=== PATIENT | female | born 1950 | race Caucasian/White ===

== ENCOUNTER → 2016-03-11 | Outpatient (CLI) | payer MEDICARE, MEDICAID ==
[~2016-03-11] MED LIST: LIDOCAINE 1% MDV 20ML VIAL As Ordered ONE
--- NOTE | 2016-03-12 16:37 | REP ---
ULTRASOUND GUIDED LEFT AXILLARY LYMPH NODE BIOPSY: The procedure was performed under the direct supervision of Dr. Johnson. The patient has a history of multiple lymph nodes in the left axilla seen on a previous CAT scan dated 02/22/2016. The risks and benefits of the procedure were explained to the patient and informed consent was obtained. The largest left axillary lymph node was localized using ultrasound guidance. The skin was prepped and draped in a sterile fashion. 1% lidocaine was used as a local anesthetic. Using ultrasound guidance a 19/20 gauge co-axial needle biopsy system was inserted and advanced into the lymph node. Six core biopsy samples were obtained and sent to the lab. The patient tolerated the procedure well and there were no immediate complications. After the appropriate amount of monitored convalescence the patient was discharged from the department. Reviewed by MISHA Diaz 03/12/2016 04:48 PEdited and Signed by Jaime Johnson MD 03/12/2016 04:49 P
== END | disposition home or self-care (01) ==
LOC: M RADPRO 12:04
PROVIDERS: ATTEND Nurse Practitioner Family
DX: C50.912 Malignant neoplasm of unspecified site of left female breast (principal); Z88.8 Allergy status to other drugs, medicaments and biological substances; Z88.5 Allergy status to narcotic agent; Z79.899 Other long term (current) drug therapy

== ENCOUNTER → 2016-03-19 | Outpatient (CLI) | payer MEDICARE, MEDICAID ==
[~2016-03-19] MED LIST changes: +ALBU17IN INH; +ALLO10TA PO; +AMIT50TA PO; +ASPI1TAB PO; +ASPI81TA13 PO; +ATEN50TA2 PO; +CALC1TAB30 PO; +CLEM2.68 PO; +KETO10TAB PO; -LIDOCAINE 1% MDV 20ML VIAL As Ordered ONE; +NATU400T PO; +PERCOCET PO; +PRAV40TA2 PO; +SYMB16INH INH
--- NOTE | 2016-03-19 16:30 | REP ---
PET/CT: History: Restaging breast carcinoma. Comparisons: Comparison CT study of the chest is from 02/22/2016. Comparison bone scan 02/22/2016. The patient underwent ultrasound-guided needle biopsy of the axillary lymph node on 03/11/2016. This was positive for metastatic ductal carcinoma breast origin. TECHNIQUE: 78 minutes following the intravenous injection of a 8.4 mCi dose of F-18 FDG, three-dimensional PET scintigraphy is acquired from the skull base to the proximal thighs. Triplanar noncontrast CT scanning is acquired through the same anatomic range for attenuation correction, and image registration with scan parameters optimized to minimize radiation exposure to the patient. PET scintigraphy and CT datasets were fused and displayed on a workstation with multiplanar and projection display capability. PET/CT Findings: There are multiple minimally hypermetabolic lymph nodes in the left axilla. Maximum SUV value in these lymph nodes range up to 2.2. No other abnormal hypermetabolic uptake is seen within the left breast. No abnormal chest wall uptake is seen. The right breast is surgically absent. There is some right pectoralis muscle uptake which is most likely normal variant. No abnormal hypermetabolic uptake is seen in the head and neck soft-tissues. No intrathoracic hypermetabolic uptake is seen. No abnormal abdominal or pelvic FDG accumulation is seen. Impression: Mildly hypermetabolic left axillary lymphadenopathy. No other hypermetabolic FDG accumulation is seen. Signed by Jaime Johnson MD 03/19/2016 08:16 P
== END ==
LOC: M RAD 11:00
PROVIDERS: ATTEND Internal Medicine Medical Oncology
DX: C50.912 Malignant neoplasm of unspecified site of left female breast (principal); R59.1 Generalized enlarged lymph nodes
CPT/HCPCS: 78815; A9552

== ENCOUNTER 2016-04-22 05:49 | Inpatient (IN) | payer MEDICARE ==
[2016-04-22] VITALS (7 sets, daily range): BP systolic 117–137; BP diastolic 57–77
[~2016-04-22] VITALS: Ht 149.9 cm; Wt 72.6 kg
[~2016-04-22 05:49] MED LIST changes: -PERCOCET PO
[2016-04-22] MEDS ORDERED: LR 1,000 ML IV SCH ×3 (06:00→12:45)
[2016-04-22] MEDS ORDERED: dexameTHASONE 4 MG/ML 1ML VIAL (J1100) As Ordered ONE (06:09)
[2016-04-22] MEDS ORDERED: ONDANSETRON 4MG/2ML VIAL (J2405) As Ordered ONE (06:09)
[2016-04-22] MEDS ORDERED: LIDOCAINE 2% INJ 100 MG/5 ML SDV (FOR ANES.) As Ordered ONE (06:09)
[2016-04-22] MEDS ORDERED: PROPOFOL 200 MG/20 ML VIAL As Ordered ONE (06:09)
[2016-04-22] MEDS ORDERED: MIDAZOLAM INJ 2 MG/2 ML VIAL (J2250) As Ordered ONE (06:16)
[2016-04-22] MEDS ORDERED: fentaNYL 250 MCG/5 ML INJECTION (J3010) As Ordered ONE (06:16)
[2016-04-22] MEDS ORDERED: SCOPOLAMINE 1.5 MG TRANSDERMAL As Ordered ONE (07:17)
[2016-04-22] MEDS ORDERED: LIDOCAINE 1% SDV INJ 30 ML VIAL As Ordered ONE (07:21)
[2016-04-22] MEDS ORDERED: HEPARIN SOD (PORCINE) 5000 UNITS/ML VIAL As Ordered ONE (07:21)
[2016-04-22] MEDS ORDERED: SCOPOLAMINE 1.5 MG TRANSDERMAL TOP ONE (07:30)
[2016-04-22] MEDS ORDERED: ceFAZolin 2 GM/D5W 50 ML IV BAG (J0690) As Ordered ONE (07:32)
[2016-04-22] MEDS ORDERED: ePHEDrine SULFATE 25 MG/5 ML(5MG/ML) SYRINGE As Ordered ONE (07:53)
[2016-04-22] MEDS ORDERED: LIDOCAINE 1% SDV INJ 30 ML VIAL XX ONE (08:34)
[2016-04-22] MEDS ORDERED: HEPARIN SOD (PORCINE) 5000 UNITS/ML VIAL XX ONE (08:34)
[2016-04-22] MEDS: ATENOLOL 50 MG TAB PO SCH (09:00)
--- NOTE | 2016-04-22 09:25 | REP ---
FLUOROSCOPIC GUIDANCE FOR CATHETER PLACEMENT: 04/22/2016. Clinical history: Mastectomy. Central line placement. Findings: Single image from C-arm fluoroscopy provided to Dr. Escobar of the surgery department. The right jugular catheter into the SVC in paraspinal region, tip at about the T6 rib level. There is an endotracheal tube also seen, a few centimeters above the lucia. Fluoroscopy time: 1 second. Signed by Sung Gil MD 04/22/2016 05:39 P
[2016-04-22] MEDS ORDERED: HYDROmorphone HCL 2 MG/ML 1ML VIAL (J1170) As Ordered ONE (09:59)
[2016-04-22] MEDS ORDERED: DESFLURANE 240 ML INHALANT As Ordered ONE ×3 (09:59→10:02)
[2016-04-22] MEDS ORDERED: fentaNYL 100 MCG/2 ML INJECTION (J3010) IV PRN (12:45)
[2016-04-22] MEDS ORDERED: HYDROmorphone HCL 1 MG/ML SYRINGE (J1170) IV PRN (12:45)
[2016-04-22] MEDS ORDERED: ONDANSETRON 4MG/2ML VIAL (J2405) IV PRN ×2 (12:45→13:00)
[2016-04-22] MEDS ORDERED: NORCO, ANEXSIA 5/325MG TABLET (HYDROcodone/ACETAMINOPHEN) PO PRN (13:00)
[2016-04-22] MEDS ORDERED: ACETAMINOPHEN TAB 650MG DOSE (2X325MG) PO PRN (13:00)
[2016-04-22] MEDS: LR 1,000 ML IV SCH (16:27)
[2016-04-22] MEDS ORDERED: PROMETHAZINE INJ 25 MG/ML VIAL (J2550) IV PRN (18:00)
[2016-04-22] MEDS ORDERED: KETOROLAC 30 MG/ML VIAL (J1885) IV PRN (18:00)
[2016-04-22] MEDS: SYMBICORT 160/4.5MCG INHALER 6GM INH SCH (20:55)
[2016-04-22] MEDS: AMITRIPTYLINE 50 MG TAB PO SCH (21:00)
[2016-04-22] MEDS: ALLOPURINOL 100 MG TAB PO SCH (21:00)
[2016-04-22] MEDS: PERCOCET 5MG/325MG TAB PO PRN (23:45)
[2016-04-23] VITALS: BP 132/65
[2016-04-23] MEDS: LR 1,000 ML IV SCH (00:48)
[2016-04-23 04:00] VITALS: BP 138/65
[2016-04-23 08:00] VITALS: BP 128/60
[2016-04-23] MEDS: SYMBICORT 160/4.5MCG INHALER 6GM INH SCH ×2 (08:11→21:54)
[2016-04-23] MEDS: ALLOPURINOL 100 MG TAB PO SCH ×2 (09:00→20:33)
[2016-04-23] MEDS: ATENOLOL 50 MG TAB PO SCH (09:00)
[2016-04-23 12:00] VITALS: BP 124/66
[2016-04-23] MEDS: PERCOCET 5MG/325MG TAB PO PRN (14:39)
[2016-04-23 16:00] VITALS: BP 109/50
[2016-04-23 20:00] VITALS: BP 110/55
[2016-04-23] MEDS: AMITRIPTYLINE 50 MG TAB PO SCH (20:33)
[2016-04-24] VITALS (7 sets, daily range): BP systolic 115–169; BP diastolic 57–86
[2016-04-24] MEDS: PERCOCET 5MG/325MG TAB PO PRN ×2 (04:09→10:08)
--- NOTE | 2016-04-24 06:02 | RO ---
DATE OF PROCEDURE: 04/23/2016 PREOPERATIVE DIAGNOSIS: Infiltrating ductal of left breast with axillary node metastases. POSTOPERATIVE DIAGNOSIS: Infiltrating ductal of left breast with axillary node metastases. PROCEDURES PERFORMED: 1. Implantation of the right internal jugular vein Txngmm-J-Llng with ultrasound and fluoroscopic guidance. 2. Left modified radical mastectomy. SURGEON: Simón Escobar MD SPRAYER LEATHER: Leelee Retana NP ANESTHESIA: General. INDICATIONS FOR THE PROCEDURE: The patient is a 65-year-old woman who had undergone treatment for a right breast carcinoma with multiple positive axillary nodes 20 years ago. On recent followup, she was found to have some enlarged nodes in the left axilla and an ultrasound-guided needle biopsy showed metastatic ductal carcinoma of breast origin. She underwent further evaluation including mammogram and ultrasound that showed no definite breast lesion. A CT scan of the chest showed nodes in the left axilla but no other abnormalities to suggest metastatic disease. A bone scan showed no evidence of metastatic disease. A PET CT showed some mildly hypermetabolic left axillary nodes. An MRI of the left breast showed three small suspicious foci deep in the left breast at about the 6 o'clock position. The patient is now for a right internal jugular (IJ) Jqqmrt-Y-Ixfr placement and a left modified radical mastectomy. OPERATIVE PROCEDURE: The patient was placed under general endotracheal anesthesia. The patient was initially prepared for the Rssfbv-E-Bdtf placement. The patient's head was turned to the left. The patient's neck and upper chest were prepped and draped in a sterile fashion. The ultrasound probe was draped in used to inspect the right neck. The patient was moved into a Trendelenburg position. She had an excellent internal jugular vein identified and the carotid artery was well seen. The site of the vein was marked on the skin with a marker. An #18 gauge needle was inserted and with continuous ultrasound guidance the needle was advanced directly into the vein without difficulty. The guidewire was passed. The skin was nicked. The peel-away sheath introducer was passed and the Wtnaay-I-Eyrd catheter was then inserted to approximately 20 cm. There was excellent return of blood and the catheter was flushed with heparinized saline. The catheter was withdrawn to approximately 15 cm at the skin. The patient was returned to a flat position. Fluoroscopy was used to inspect the position of the catheter and the catheter was returned to approximately 12 cm of the skin surface. This showed good positioning of the tip of the catheter just about at the juncture of the superior vena cava and the right atrium. A short infraclavicular incision was made and a subcutaneous port was created for placement of the port. The catheter was tunneled subcutaneously down to the port sites. The port was flushed with heparinized saline and the catheter was then cut to length and attached to the port with a locking ring. The port was placed in the subcutaneous pocket and two #3-0 Vicryl sutures were placed to hold this in place. The subcutaneous tissues were closed with some interrupted buried sutures of #3-0 Vicryl. Both incisions were then closed with buried #5-0 Vicryl. The port was accessed through the skin and flushed with 100 units/mL heparin solution. Steri-Strips were applied to the port site incision. Small OpSite were applied to both incisions. The patient was then repositioned. She had a folded towel placed beneath the left shoulder. The left arm was extended on an arm board. The patient's left breast, chest wall, axilla and left upper extremity were then prepped and draped in sterile fashion. An elliptical transverse incision was outlined across the breast. This was approximately 5-6 cm in width x 25 cm in length. The skin was incised and the incision was then deepened into the subcutaneous tissues using the cautery. The superior skin flap was elevated using the cautery. The inferior skin flap was then developed similarly. The elevation of the breast was begun medially by incising the pectoral fascia and then elevating the breast with the underlying pectoral fascia from medial to lateral. Dissection was carried to the lateral border of the pectoral muscle. The dissection was then carried up along the border of the pectoral muscle freeing the edge of the muscle. The pectoralis minor muscle was also identified. There were no nodes identified between the pectoral muscles. The location of the axillary vein and the artery was identified by palpation. The soft tissues were incised inferior to the vein and swept inferiorly. There were several nodes palpable in the upper aspect of the axilla. The largest of these was about a centimeter and did appear to be somewhat adherent to the surrounding fibrofatty tissue. This was just inferior to the vein along the chest wall. This was swept inferiorly. There were several small, firm nodes also in this area. Dissection was carried across the inferior aspect of the vein. The thoracodorsal neurovascular bundle was identified and preserved. The long thoracic nerve was also identified and preserved. The tissues were swept inferiorly from the interneural area. As the tissues were swept inferiorly, the lateral chest wall attachments of the breast were freed with the cautery and the final attachments underneath the skin flaps laterally were freed and the specimen was removed. Palpation within the axilla revealed a small portion of fibrofatty tissue at the lateral aspect of the axilla and this appeared to contain at least one node in the superior portion and so this portion of fibrofatty tissue was dissected free also. The specimen was labeled a modified radical mastectomy with additional axillary tissue and all of this tissue was sent for permanent pathology. The wound was inspected and there were no definite residual nodes identified within the axilla. The two nerves were identified and were intact. The wound was irrigated with warm saline and inspected for hemostasis. Small bleeding points were controlled with the cautery. Two 19-Eritrean Vipin drains were placed. One of these was placed more medial and curled up beneath the medial portions of the wound to lie beneath the superior skin flap. The second took a more lateral approach and extended directly up into the axilla. The skin flaps were approximated with multiple buried simple sutures of #3-0 Vicryl. The skin edges were approximated with a running subcuticular suture of #4-0 Vicryl. Steri-Strips were applied to the incision. The drains were sutured to the skin with #2-0 silk sutures. Chlorhexidine gluconate OpSites were applied to the drain sites. A bulky bandage was applied within the axilla and along the incision. I would note that the Fptinz-J-Jpxz placed was a Bard port, reference code number [id number] and lot number [id number]. The patient was awakened in the operating room and extubated and moved to the recovery room in stable condition.
[2016-04-24] MEDS: SYMBICORT 160/4.5MCG INHALER 6GM INH SCH ×2 (08:04→20:22)
[2016-04-24] MEDS: ALLOPURINOL 100 MG TAB PO SCH ×2 (08:19→21:37)
[2016-04-24] MEDS: ATENOLOL 50 MG TAB PO SCH (08:20)
[2016-04-24] MEDS ORDERED: MOM 30ML SUSPENSION UDC PO ONE (21:00)
[2016-04-24] MEDS ORDERED: SODIUM CHLORIDE NASAL 0.65% SPRAY BTL (OCEAN) PRN (21:00)
[2016-04-24] MEDS: AMITRIPTYLINE 50 MG TAB PO SCH (21:37)
[2016-04-25] VITALS: BP 103/67
[2016-04-25 04:28] VITALS: BP 125/61
[2016-04-25] MEDS: SYMBICORT 160/4.5MCG INHALER 6GM INH SCH (07:29)
[2016-04-25 08:00] VITALS: BP 119/58
[2016-04-25 08:58] VITALS: BP 119/58
[2016-04-25] MEDS: ATENOLOL 50 MG TAB PO SCH (08:58)
[2016-04-25] MEDS: ALLOPURINOL 100 MG TAB PO SCH (08:58)
[2016-04-25 12:00] VITALS: BP 124/74
[2016-04-25] MEDS ORDERED: PERCOCET PO (12:28)
[2016-04-25] MEDS: PERCOCET 5MG/325MG TAB PO PRN (13:26)
== END 2016-04-25 14:00 | disposition home or self-care (01) | DRG 582 ==
LOC: M OR 05:49 → M PED 13:53
PROVIDERS: ADMIT Surgery; ATTEND Surgery
PROC: 0HTU0ZZ Resection of Left Breast, Open Approach (ICD-10-PCS; principal; 2016-04-23)
PROC: 02HV33Z Insertion of Infusion Device into Superior Vena Cava, Percutaneous Approach (ICD-10-PCS; 2016-04-23)
DX: C50.912 Malignant neoplasm of unspecified site of left female breast (principal); C77.3 Secondary and unspecified malignant neoplasm of axilla and upper limb lymph nodes; Z79.899 Other long term (current) drug therapy; I10 Essential (primary) hypertension; E78.00 Pure hypercholesterolemia, unspecified; G47.30 Sleep apnea, unspecified; J44.9 Chronic obstructive pulmonary disease, unspecified; K21.9 Gastro-esophageal reflux disease without esophagitis; Z85.3 Personal history of malignant neoplasm of breast; I97.2 Postmastectomy lymphedema syndrome

== ENCOUNTER → 2016-05-15 | Outpatient (CLI) | payer MEDICARE ==
[~2016-05-15] MED LIST changes: +PERCOCET PO
--- NOTE | 2016-05-15 13:48 | REP ---
MRI BRAIN WITHOUT AND WITH CONTRAST: 05/15/2016 CLINICAL HISTORY: Dizziness. Metastatic breast carcinoma. Evaluate for possible intracranial metastatic disease. COMPARISON: 01/20/2014. TECHNIQUE: Axial T1, T2 FLAIR, diffusion weighted images and ADC mapping sequences. Following infusion of 14.4 mL of ProHance, axial, sagittal and coronal T1 sequences were performed. FINDINGS: Lateral ventricles are midline symmetric and without dilatation or displacement. Basal ganglia show some dilated perivascular spaces of Virchow, as before. There is some periventricular, subcortical and a few scant deep centrum semiovale white matter hyperintense T2 and FLAIR foci in both hemispheres. There are a couple of new foci periventricular region on the left posterior frontal region but no other change. There is no evidence of enhancement any of these foci on the contrast images. The evans-white junction differentiation is well maintained. The cortical stripe is preserved. No significant atrophy, vascular territory infarct, mass or mass effect. I see no evidence of gyriform enhancement, enhancing mass, abnormal meningeal enhancement or vascular malformation. There is no cord signal abnormality or abnormal enhancement on the upper cervical cord included in these images. Posterior fossa including the brainstem and cerebellum likewise shows no abnormal enhancement. Globes and intraorbital contents symmetric and normal. The visualized mastoids, seventh/eighth cranial nerve complexes and skull base are grossly unremarkable. The corpus callosum, optic chiasm and pituitary are intact. No cerebellar tonsillar ectopia. IMPRESSION: 1. Basal ganglia, periventricular and subcortical white matter hyperintense foci on T2 and FLAIR images, similar in pattern to previous study with only a couple of new foci in the left periventricular region of the posterior frontal lobe. None of these show abnormal enhancement nor is there any enhancing mass, abnormal meningeal enhancement, gyriform enhancement or other finding on the gadolinium images. 2. Posterior fossa intact. No intracranial hemorrhage. 3. The diffusion-weighted images and ADC mapping sequences show no evidence of acute ischemia. Stable examination. Signed by Sung Gil MD 05/15/2016 04:17 P
== END ==
LOC: M RAD 09:18
PROVIDERS: ATTEND Internal Medicine Medical Oncology
DX: C50.919 Malignant neoplasm of unspecified site of unspecified female breast (principal); R42 Dizziness and giddiness
CPT/HCPCS: 70553; A9576

== ENCOUNTER 2016-06-01 07:00 | Emergency (ER) | payer MEDICARE ==
[~2016-06-01] VITALS: Ht 152.4 cm; Wt 72.6 kg
[2016-06-01] MEDS ORDERED: KETOROLAC 30 MG/ML VIAL (J1885) IV ONE (08:00)
[2016-06-01] MEDS ORDERED: NS 1,000 ML IV ONE (08:00)
[2016-06-01 08:57] LABS: ALBUMIN 2.5 GM/DL (3.2-5.2); ALBUMIN/GLOBULIN RATIO 0.69 (1.00-1.93); ALKALINE PHOSPHATASE 101 U/L (45-117); ALT/SGPT 20 U/L (12-78); ANION GAP 6 MEQ/L (8-16); AST/SGOT 19 U/L (15-37); BILIRUBIN,DIRECT 0.1 MG/DL (0.0-0.2); BILIRUBIN,TOTAL 0.6 MG/DL (0.2-1.0); BLOOD UREA NITROGEN 14 MG/DL (7-18); CALCIUM LEVEL 7.6 MG/DL (8.8-10.2); CARBON DIOXIDE LEVEL 29 MEQ/L (21-32); CHLORIDE LEVEL 103 MEQ/L (98-107); CREATININE FOR GFR 0.74 MG/DL (0.55-1.02); GLOMERULAR FILTRATION RATE > 60.0 (>45); GLUCOSE, FASTING 87 MG/DL (80-110); POTASSIUM SERUM 3.8 MEQ/L (3.5-5.1); SODIUM LEVEL 138 MEQ/L (136-145); TOTAL PROTEIN 6.1 GM/DL (6.4-8.2)
[2016-06-01 08:58] LABS: MEAN CORPUSCULAR HEMOGLOBIN 27.1 pg (27.0-33.0); MEAN CORPUSCULAR HGB CONC 31.1 g/dl (32.0-36.5); MEAN CORPUSCULAR VOLUME 87.2 fl (80.0-96.0); PLATELET COUNT, AUTOMATED 153 k/mm3 (150-450); RED CELL DISTRIBUTION WIDTH 13.9 % (11.5-14.5)
--- NOTE | 2016-06-01 09:09 | REP ---
Clinical: Fever. Technique: PA and lateral. Comparison: 12/12/2010. Findings: Mediastinum and cardiac silhouette are within normal limits and stable. Uxisjq-P-Jmxd with tip in the SVC. Evidence for prior bilateral axillary node dissection. Moderate hiatal hernia noted. No acute consolidation, effusion, or pneumothorax. Skeletal structures stable. Impression: No acute cardiopulmonary process identified. Signed by Gio Dillard MD 06/01/2016 09:01 A
[2016-06-01] MEDS ORDERED: fentaNYL 100 MCG/2 ML INJECTION (J3010) IV ONE (09:30)
[2016-06-01 09:34] LABS: BANDS 2 % (< 11); EOSINOPHILS 5 % (0-5)
[2016-06-01 10:17] VITALS: BP 129/60
== END 2016-06-01 10:43 | disposition home or self-care (01) ==
LOC: M ED 07:42
DX: R53.81 Other malaise (principal); R53.83 Other fatigue; M10.9 Gout, unspecified; G47.33 Obstructive sleep apnea (adult) (pediatric); I10 Essential (primary) hypertension; C50.919 Malignant neoplasm of unspecified site of unspecified female breast; G43.909 Migraine, unspecified, not intractable, without status migrainosus; J45.909 Unspecified asthma, uncomplicated; Z88.6 Allergy status to analgesic agent; Z88.8 Allergy status to other drugs, medicaments and biological substances; Z91.018 Allergy to other foods; Z88.5 Allergy status to narcotic agent; Z79.82 Long term (current) use of aspirin; Z79.899 Other long term (current) drug therapy
CPT/HCPCS: 36415; 71020; 80048; 80076; 81001; 83605; 85025; 86140; 87040; 87086; 87804; 96361; 96374; 96375; 99283; J1885; J3010

== ENCOUNTER 2016-06-18 13:30 | Emergency (ER) | payer MEDICARE ==
[~2016-06-18] VITALS: Ht 149.9 cm; Wt 74.8 kg
[2016-06-18] MEDS ORDERED: DEXA4TA (13:52)
[2016-06-18] MEDS ORDERED: Compazine (13:52)
[2016-06-18] MEDS ORDERED: AUGM500T34 (13:52)
[2016-06-18] MEDS ORDERED: ZOFR8TAB (13:52)
[2016-06-18] MEDS ORDERED: FAMOTIDINE IV BAG 20 MG in APPROPRIATE DILUENT 1 EA IV ONE (14:30)
[2016-06-18] MEDS ORDERED: methylPREDNISolone INJ 125 MG/2 ML VIAL (J2930) IV ONE (14:30)
--- NOTE | 2016-06-18 15:39 | REP ---
Soft-tissue neck x-ray: Three views. History: Difficulty swallowing. Findings: A right-sided Bawpka-Y-Bdxf catheter is seen with its tip in the expected location of the superior vena cava via the internal jugular vein. The soft tissue neck radiographs show normal epiglottis. The retropharyngeal soft tissues are unremarkable. Glottic and subglottic airway is unremarkable. Hypopharyngeal airway is unremarkable. There are degenerative disc changes in the mid cervical spine. Impression: Right internal jugular vein Dbbonx-S-Wvxa catheter. No evidence of mass or abnormal swelling. Otherwise negative. Signed by Jaime Johnson MD 06/18/2016 05:05 P
[2016-06-18] MEDS ORDERED: PRED20TA PO (17:51)
[2016-06-18] MEDS ORDERED: BENA25TA9 PO (17:52)
[2016-06-18 18:13] VITALS: BP 174/85
[2016-06-18] MEDS ORDERED: SODIUM CHLORIDE 0.9% INJ 10 ML SYR IV PRN (18:30)
== END 2016-06-18 18:43 | disposition home or self-care (01) ==
LOC: EDBD 13:30 → M ED 16:04
DX: T88.7XXA Unspecified adverse effect of drug or medicament, initial encounter (principal); X58.XXXA Exposure to other specified factors, initial encounter; Y92.9 Unspecified place or not applicable; Y93.9 Activity, unspecified; Y99.9 Unspecified external cause status; C50.919 Malignant neoplasm of unspecified site of unspecified female breast; G47.30 Sleep apnea, unspecified; K22.70 Barrett's esophagus without dysplasia; K44.9 Diaphragmatic hernia without obstruction or gangrene
CPT/HCPCS: 70360; 93041; 94760; 96374; 96375; 99284; J2930

== ENCOUNTER → 2016-07-31 | Outpatient (CLI) | payer MEDICARE ==
[~2016-07-31] MED LIST changes: +AUGM500T34; +BENA25TA9 PO; +Compazine; +DEXA4TA; +PRED20TA PO; +ZOFR8TAB
--- NOTE | 2016-07-31 14:40 | RADONC ---
RADIATION ONCOLOGY CONSULTATION NOTE DATE: 07/31/2016 CHART NUMBER: [id number] DIAGNOSIS: Left breast cancer. STAGE: IIIC, [id number] ECOG PERFORMANCE STATUS: 2 CONSULTATION NOTE: Ms. Johnson is a very pleasant 65-year-old white female with the diagnosis of what appears to be a stage IIIC, [id number], poorly differentiated invasive ductal carcinoma of the left breast who is presenting to us today status post left mastectomy and axillary lymph node dissection as well as chemotherapy consisting thus far of four cycles of Adriamycin and Cytoxan, for discussion of definitive external beam radiation therapy with IMRT/IGRT. HISTORY OF PRESENT ILLNESS: The patient is actually well-known to us and was initially seen by me on 05/13/2002 for what was then thought to be at least a stage IIIA or possibly stage IV, T2N2MX, poorly differentiated infiltrating ductal carcinoma of the right breast. At that point, she had already undergone right modified radical mastectomy and four cycles of chemotherapy consisting of Cytoxan and Adriamycin as well as weekly Taxol. We treated the patient back then to her left chest wall and lymph node drainage sites. She has done well for the last 14 years with regards to her very advanced cancer of the right side. At that time, she had been found to have 24 out of 24 dissected lymph nodes positive with metastatic disease and at least two of the lymph nodes had extracapsular extension. Unfortunately, the patient has a significant amount of lymphedema over her right side. More recently, the patient was found to have a lesion in the lower quadrant of her left breast. On 04/22/2016, she underwent a left modified radical mastectomy and axillary lymph node dissection. Pathology revealed a 2 cm poorly differentiated invasive ductal carcinoma of the left breast. A total of 22 axillary lymph nodes were sampled, and all were found to have metastatic adenocarcinoma. Extranodal extension and tumor plugs in lymphatic channels were seen throughout the axilla. The largest lymph node measured 3.5 cm. The tumor was found to be estrogen receptor and progesterone receptor positive and HER2 negative. Lymph vascular invasion was identified and was extensive. The patient was seen by our medical oncologist, Dr. Anderson, who has given the patient systemic therapy. She has thus far, as of Thursday this week, completed her fourth cycle of chemotherapy consisting of docetaxel and cyclophosphamide. The patient is now presenting for discussion of external beam radiation therapy to her chest wall and lymph node drainage areas. PAST MEDICAL HISTORY: The patient's past medical history, other than for contralateral breast cancer, is positive for hypertension and asthma. ALLERGIES: The patient is allergic to DEMEROL and MORPHINE. SOCIAL HISTORY: The patient does not smoke cigarettes nor abuse alcohol. FAMILY HISTORY: The patient's family history is positive for a brother with melanoma and a sister with Hodgkin disease. REVIEW OF SYSTEMS: The patient's review of systems is positive for bilateral upper extremity lymphedema. 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 Her left arm and hand are now swelling since her extensive axillary dissection as well. She also reports some occasional dizziness as well as weight gain. She has generalized weakness as well as decreased energy. She also reports some shortness of breath. She denies nausea, vomiting, fevers, chills, night sweats, diplopia, anxiety or depression, anorexia, urinary or bowel difficulties, or neurological problems. PHYSICAL EXAMINATION: The patient is a well-developed, well-nourished, 65-year-old white female in no acute distress. Her face appears somewhat puffy. HEENT: Exam is normocephalic, atraumatic. Extraocular movements are intact. There is no palpable cervical, supraclavicular, infraclavicular, axillary, or inguinal lymphadenopathy present. Her lungs are clear to auscultation and percussion. Her heart has a regular rate and rhythm. Her abdomen is benign with no hepatosplenomegaly, masses, or tenderness. Her bilateral chest miller show well-healed mastectomy scars with no evidence of nodularity, ulceration, residual or recurrent disease. Skeletal examination reveals no tenderness to pressure or percussion of the bony skeleton. Extremities reveal bilateral upper extremity edema. She is wearing lymphedema sleeves on both arms. The edema in the right arm appears to be somewhat worse than the left, but the difference appears minimal between the two at this point. MEDICAL NECESSITY: IMRT/IGRT is clinically indicated for the highly conformal dose planning required. The target volume is in close proximity to critical structures, such as the heart, lungs, spinal cord, stomach, and esophagus. The volume of interest must be covered with narrow margins to adequately protect immediately adjacent structures. The plan requires interpretation of complex testing such as CT localization. As noted above, special planning (IMRT) and localizing (IGRT) is required and essential to maximally protect sensitive normal tissue structures which cannot be accomplished using conventional 3-dimensional planning. ASSESSMENT: Clearly, Ms. Johnson is a candidate for external beam radiation therapy, and I have so informed her. I have discussed with the patient in detail the potential benefits as well as possible acute and chronic sequelae of external beam radiation therapy. We discussed logistics of treatment planning, simulation, and subsequent fractionated daily radiation treatments. In light of the fact that she has extensive lymph involvement and lymph vascular invasion and the fact that this was a lower quadrant lesion somewhat medially in location, clearly we will need to treat the internal mammary nodes if at that all possible. Because of the proximity of the heart and other critical structures and the previously irradiated chest wall on the contralateral side, great care will need to be taken in order to avoid damaging any of these structures. Therefore, IMRT will provide us the best chance of achieving that. Once again, we will require IMRT/IGRT in order to minimize any dose to the contralateral chest wall as well as to the heart and other critical organs. The patient is scheduled to see Dr. Anderson, her medical oncologist, next week to discuss further chemotherapy. She reports that she was originally designed to receive six cycles of chemo not four. She wishes to undergo those cycles considering the aggressive nature of her disease. I explained to the patient that radiation would be delivered after she completes chemotherapy. Since two further cycles are planned at this point, I have tentatively set her up to be seen by me again in 7 weeks for further followup and initiation of treatment planning. If, for some reason, the patient completes chemotherapy early, her medical oncologist can refer back to us at any time and we can initiate radiation sooner. Thank you for allowing us to participate in the care of this very pleasant woman. If I could be of any further assistance or provide you with any information, please fell free to contact me anytime. cc: MD Simón Ghosh MD Fredrick Tontarski, PA
--- NOTE | 2016-08-08 09:18 | RADONC ---
ADDENDUM TO CONSULTATION NOTE DATE: 07/31/2016 CHART NUMBER: [id number] On the second page the paragraph that says the patient was seen by her medical oncologist Dr. Anderson who has given her systemic therapy. The drug names are wrong. So the last sentence of that should read she is thus far as of Thursday this week completed her fourth cycle of chemotherapy consisting of Adriamycin and Cytoxan. So it is Adriamycin and Cytoxan not docetaxel and cyclophosphamide.
== END ==
LOC: M ONCR 08:46
PROVIDERS: ATTEND Radiology Radiation Oncology
DX: C50.919 Malignant neoplasm of unspecified site of unspecified female breast (principal)

== ENCOUNTER → 2016-08-27 | Outpatient (CLI) | payer MEDICARE ==
--- NOTE | 2016-08-27 15:30 | REP ---
Clinical: Increasing shortness of breath with history of breast cancer. Comparison: 02/22/2016. Findings: The bilateral lung bean are relatively well aerated and symmetric. Minimal chronic interstitial changes and scarring noted. Superimposed subtle acute lingular air space disease should be correlated clinically and may reflect atelectasis/early pneumonia. No significant consolidation, nodule or mass lesion otherwise appreciated. No pleural effusion. No pneumothorax. Tracheobronchial tree is patent. Postsurgical changes related to hiatal hernia remains stable at the gastroesophageal junction. Heart and pericardium are normal. Atherosclerotic changes to the thoracic aorta noted without aneurysm. The patient is status post bilateral mastectomy and axillary node dissection. Limited upper abdomen demonstrates normal bilateral adrenal glands. Surrounding musculoskeletal structures are intact without focal osseous abnormality. Impression: 1. Very subtle air space disease to the lingula may reflect acute atelectasis/early pneumonia and correlation is recommended. 2. Chronic and postsurgical changes. No further acute mediastinal or pleuroparenchymal process appreciated. Signed by Gio Dillard MD 08/27/2016 03:22 P
== END ==
LOC: M RAD 14:13
PROVIDERS: ATTEND Internal Medicine Medical Oncology
DX: C50.919 Malignant neoplasm of unspecified site of unspecified female breast (principal); R06.02 Shortness of breath

== ENCOUNTER → 2016-09-18 | Outpatient (CLI) | payer MEDICARE ==
[~2016-09-18] MED LIST changes: -ASPI81TA13 PO; +ASPI81TA24 PO; +BENA25TA10 PO; -BENA25TA9 PO; +PERC5TAB12 PO
--- NOTE | 2016-09-18 10:06 | RADONC ---
RADIATION ONCOLOGY RECONSULTATION NOTE DATE: 09/18/2016 CHART NUMBER: [id number] DIAGNOSIS: Left breast cancer STAGE: III C, [id number]. ECOG PERFORMANCE STATUS: 1. RECONSULTATION NOTE: Ms. Johnson is a very pleasant 65-year-old white female with the diagnosis of what appears to be a stage III C, [id number], poorly differentiated invasive ductal carcinoma of the left breast who initially presented to us on 07/31/2016 for consideration of postoperative radiation therapy utilizing IMRT/IGRT. The patient returns today now having completed chemotherapy on 09/11/2016, of last week. She is now here for discussion once again of external beam radiation therapy. REVIEW OF SYSTEMS: The patient's review of systems is positive for bilateral lymphedema. Her right arm is largely of no use to her. The left arm is also quite enlarged. She has some fatigue and loss of energy. She denies nausea, vomiting, fevers, chills, night sweats, diplopia, headaches, visual disturbances, chest pain, urinary or bowel difficulties, or neurological problems. PHYSICAL EXAMINATION: The patient is a well-developed, well-nourished, 65-year-old, in no acute distress. HEENT exam is normocephalic, atraumatic. Extraocular movements are intact. There is no palpable cervical, supraclavicular, infraclavicular, axillary, or inguinal lymphadenopathy present. Lungs are clear to auscultation and percussion. Heart has a regular rate and rhythm. Abdomen is benign with no hepatosplenomegaly, masses, or tenderness. Her bilateral chest miller show well healed mastectomy scars with no evidence of nodularity, ulceration or residual recurrent disease. Skeletal examination reveals no tenderness to pressure or percussion of the bony skeleton. Extremities reveal bilateral lymphedema, worse on the right than the left. Neurologic exam is grossly intact, as is the remainder of the physical examination. MEDICAL NECESSITY: IMRT/IGRT is clinically indicated for a highly conformal dose planning regard. The target volume is in close proximity to critical structures, such as the heart, lungs, spinal cord, stomach, and esophagus. The volume of interest must be covered with narrow margins to adequately protect immediately adjacent structures. The plan requires interpretations of complex testing such as CT localization. As noted above, special planning (IMRT) and localizing [IGRT) is required and essential to maximize protect sensitive normal tissue structures which cannot be accomplished using conventional three-dimensional planning. ASSESSMENT: Ms. Johnson is now presenting to us for consideration of her external beam radiation therapy and I have discussed with her the potential benefits as well as possible acute and chronic sequelae. We discussed logistics of treatment planning, simulation, subsequent fractionated daily radiation treatments. I specifically spoke about the increased risk of further lymphedema in this patient who already has significant bilateral lymphedema. I let her know that the chances are high that she would lose a significant of amount of function in the left arm as well. I have scheduled the patient for simulation next week and radiation treatments will begin subsequently. Thank you for allowing us to participate in the care of this very pleasant woman. If I could be of any further assistance or provide you with any information, please feel free to contact me at anytime. As always with warm regards. cc: Marilia Anderson MD, FACP MD Efra Moreira PA MTDD
--- NOTE | 2016-09-22 14:27 | RADONC ---
RADIATION ONCOLOGY SIMULATION NOTE DATE: 09/22/2016 CHART NUMBER: [id number] Ms. Johnson was taken to the CT scan for CT simulation of her left breast and lymphatic drainage site field. CT was accomplished without difficulty or discomfort. Radiation treatment planning is underway and radiation treatments will begin subsequently. An immobilization device was created and will be used throughout the course of treatment. It was also created without difficulty or discomfort. I was physically present throughout the course of CT simulation.
== END ==
LOC: M ONCR 08:56
PROVIDERS: ATTEND Radiology Radiation Oncology
DX: C50.812 Malignant neoplasm of overlapping sites of left female breast (principal)

== ENCOUNTER 2016-09-22 15:41 | Outpatient (RCR) | payer MEDICARE ==
[~2016-09-22 15:41] MED LIST changes: -PERC5TAB12 PO
== END 2016-09-29 ==
LOC: M ONCR 15:41
PROVIDERS: ATTEND Radiology Radiation Oncology
DX: C50.812 Malignant neoplasm of overlapping sites of left female breast (principal)

== ENCOUNTER → 2016-09-22 | Outpatient (CLI) | payer MEDICARE | LOC: M RAD 13:30 | PROVIDERS: ATTEND Radiology Radiation Oncology | DX: C50.919 Malignant neoplasm of unspecified site of unspecified female breast (principal) ==

== ENCOUNTER 2016-09-30 11:46 | Outpatient (RCR) | payer MEDICARE ==
--- NOTE | 2016-10-13 09:57 | RADONC ---
RADIATION ONCOLOGY PROGRESS NOTE DATE: 10/13/2016 CHART NUMBER: [id number] Ms. Johnson is presently a dose of 900 cGy to her left chest wall and is tolerating treatments quite well at this point with no complaints related to her radiation therapy. She is having no breast or bone pain. REVIEW OF SYSTEMS: The patient's review of systems is noncontributory. She denies nausea, vomiting, fevers, chills, night sweats, diplopia, headaches, anxiety or depression, anorexia, weight loss, visual disturbances, chest pain, urinary or bowel difficulties, bone pain, or neurological problems. PHYSICAL EXAMINATION: The patient's skin is in good condition with no evidence of radiation change present. The remainder of her physical exam remains unchanged. Ms. Johnson is tolerating treatments quite well and radiation will continue as scheduled.
--- NOTE | 2016-10-20 09:11 | RADONC ---
RADIATION ONCOLOGY PROGRESS NOTE DATE: 10/20/2016 CHART NUMBER: [id number] Ms. Johnson is presently at a dose of 1800 cGy to her left chest wall and is tolerating treatments quite well at this point with no complaints at this time related to her radiation therapy or disease. She has no chest wall or bone pain. She does have swelling and some redness in her contralateral arm. She reports that she has a history of multiple episodes of cellulitis and that she is sure the cellulitis has recurred. She has been under the care of her medical oncologist for her cellulitis for years. REVIEW OF SYSTEMS: The patient's review of systems is positive for swelling in the contralateral arm with some tenderness and erythema, but is otherwise noncontributory. She does have lymphedema bilaterally. She denies nausea, vomiting, fevers, chills, night sweats, diplopia, headaches, anxiety, depression, anorexia, weight loss, visual disturbances, chest pain, urinary or bowel difficulties or bone pain. PHYSICAL EXAMINATION: The patient's skin is in good condition with no evidence of moist or dry desquamation. There is barely any radiation tanning or erythema present. She does have edema in he upper extremities bilaterally. Her contralateral arm seems to be a little more swollen today and there is some erythema. The remainder of her physical exam remains unchanged. ASSESSMENT: The patient is clinically doing well with her radiation and radiation will continue as scheduled. The patient is planning on calling her medical oncologist for antibiotics. I let the patient know that if she has any trouble or any issues to feel free and contact me and that I am more than glad to call in a prescription for her. In the meantime, radiation will continue as scheduled.
[2016-10-23] MEDS ORDERED: PERC5TAB12 PO (09:08)
--- NOTE | 2016-10-24 18:58 | RADONC ---
RADIATION ONCOLOGY PROGRESS NOTE DATE: 10/23/2016 CHART NUMBER: [id number] Ms. Johnson is continuing with radiation to her left chest wall and lymphatic drainage sites. The patient came in today crying in pain, reporting increasing lymphedema of the right arm. She reports that she is not being followed at the lymphedema clinic for that arm. PHYSICAL EXAMINATION: On physical exam, there is marked increase in the lymphedema of her right upper extremity. I have set up an appointment with the patient to be seen today in the lymphedema clinic. She had been a patient there for an extensive period of time, but was discontinued from followup. I look forward to their expert opinion. In the meantime, I have given the patient a prescription for Percocet for her pain. I have checked with [facility] as appropriate. She has also been initiated on an antibiotic by her medical oncologist for what appears to be recurring pain and lymphedema. It may be possible that her discomfort may be worsening slightly because of the position she is in during radiation treatments. Unfortunately, to deliver IMRT to the internal mammary nodes as well as the supraclavicular and axillary lymph nodes, her present position is necessary. I discussed the possibility of changing the bean with her, but this could interfere with her overall coverage of some of those lymphatic drainage sites. The patient at this point wishes to try the lymphedema clinic and perhaps wrapping through that clinic rather than change the radiation treatment bean at this point. We will continue to follow her closely throughout this period.
--- NOTE | 2016-10-28 06:24 | RADONC ---
RADIATION ONCOLOGY PROGRESS NOTE DATE: 10/27/2016 CHART NUMBER: [id number] Ms. Johnson is presently at a dose of 2700 cGy to her left breast and is tolerating treatments quite well with no complaints at this time related to her radiation therapy. She continues to have pain and lymphedema of the arm. It has been wrapped and actually has decreased significantly over the week. REVIEW OF SYSTEMS: The patient's review of systems is positive for continued lymphedema but is otherwise noncontributory. Denies nausea, vomiting, fevers, chills, night sweats, diplopia, headaches, anxiety or depression, anorexia, weight loss, visual disturbances, chest pain, urinary or bowel difficulties, bone pain, or neurological problems. PHYSICAL EXAMINATION: The patient's skin is in good condition with no evidence of moist or dry desquamation. The remainder of her physical exam remains unchanged. Ms. Johnson is tolerating treatments quite well and radiation will continue as scheduled. She will continue to be managed by the lymphedema people.
== END 2016-10-30 ==
LOC: M ONCR 11:46
PROVIDERS: ATTEND Radiology Radiation Oncology
DX: C50.812 Malignant neoplasm of overlapping sites of left female breast (principal)

== ENCOUNTER → 2016-10-30 | Outpatient (RCR) | payer MEDICARE ==
[~2016-10-30] MED LIST changes: +PERC5TAB12 PO
== END ==
LOC: M PT 10-23 10:47
PROVIDERS: ATTEND Radiology Radiation Oncology
DX: Z51.89 Encounter for other specified aftercare (principal); R59.0 Localized enlarged lymph nodes
CPT/HCPCS: 97140; 97163; G8984; G8985

== ENCOUNTER 2016-10-31 13:29 | Outpatient (RCR) | payer MEDICARE ==
--- NOTE | 2016-11-05 09:09 | RADONC ---
RADIATION ONCOLOGY PROGRESS NOTE: DATE: 11/04/2016 CHART NUMBER: [id number] Ms. Johnson is presently at a dose of 3600 cGy to her left chest wall and lymph nodes drainage sites and is tolerating treatments quite well at this point with no complaints at this time related to her radiation therapy or disease on the left side. The patient continues to have massive amount of lymphedema of the right arm which is quite painful. She is presently being managed by the lymphedema clinic. Her pain continues. REVIEW OF SYSTEMS: Remainder of her review of systems is noncontributory other than for the lymphedema in the pain. She denies nausea, vomiting, fevers, chills, night sweats, diplopia, headaches, anxiety or depression, anorexia, weight loss, visual disturbances, chest pain, urinary or bowel difficulties, bone pain, or neurological problems. denies standard review of systems. PHYSICAL EXAMINATION: The patient's skin is in good condition with no evidence of moist or dry desquamation in the treated field. She continues to have massive bilateral lymphedema of the upper extremities. The remainder of physical exam is unchanged. Radiation itself is well tolerated and will continue as scheduled. She is presently being seen and managed by the lymphedema clinic. I have also set her up for a referral to the pain clinic to see them managing her significant amount of pain. In the meantime radiation will continue as scheduled.
--- NOTE | 2016-11-10 09:36 | RADONC ---
RADIATION ONCOLOGY PROGRESS NOTE DATE: 10/31/2016 CHART NUMBER: [id number] Ms. Johnson is presently at a dose of 4320 cGy to her left chest wall and isaac drainage sites. She is tolerating treatments quite well with no difficulties related to her radiation therapy. REVIEW OF SYSTEMS: The patient's review of systems continues to be positive for her lymphedema. It is somewhat improved however. The remainder of her physical the review of systems is otherwise noncontributory. Denies nausea, vomiting, fevers, chills, night sweats, diplopia, headaches, anxiety or depression, anorexia, weight loss, visual disturbances, chest pain, urinary or bowel difficulties, bone pain, or neurological problems. PHYSICAL EXAMINATION: The patient's skin is in good condition with no evidence of moist or dry desquamation. The remainder of her physical exam remains unchanged. Ms. Johnson is tolerating treatments quite well and radiation will continue as scheduled.
--- NOTE | 2016-11-12 14:38 | RADONC ---
RADIATION ONCOLOGY SIMULATION NOTE DATE: 11/12/2016 CHART NUMBER: [id number] Ms. Johnson was taken to the linear accelerator today for clinical setup of her electron beam scar boost. Setup was accomplished without difficulty or discomfort. Radiation treatment planning is underway and radiation treatments will begin subsequently. An immobilization device was created and will be used throughout the course of treatment. It was created without difficulty or discomfort. I was physically present throughout the course of clinical simulation.
--- NOTE | 2016-11-17 09:17 | RADONC ---
RADIATION ONCOLOGY PROGRESS NOTE: DATE: 11/17/2016 CHART NUMBER: [id number] Ms. Johnson is presently at a dose of 5220 cGy to her left chest wall scar site. She is tolerating treatments quite well at this point with no complaints related to her radiation therapy other than some tenderness of the skin. REVIEW OF SYSTEMS: The patient's review of systems continues to be positive for physical limitations especially secondary to her contralateral lymphedema. Her review of systems is largely otherwise noncontributory. She denies nausea, vomiting, fevers, chills, night sweats, diplopia, headaches, anxiety or depression, anorexia, weight loss, visual disturbances, chest pain, urinary or bowel difficulties or neurological problems. PHYSICAL EXAMINATION: The patient's skin shows some erythema present but overall is in good condition with no evidence of moist or dry desquamation. The remainder of her physical exam remains unchanged. Ms. Johnson is tolerating treatments quite well and radiation is scheduled for completion at the end of the week.
--- NOTE | 2016-11-25 08:11 | RADONC ---
RADIATION ONCOLOGY TREATMENT SUMMARY DATE: 11/24/2016 CHART NUMBER: [id number] DIAGNOSIS: Left breast cancer STAGE: III C, [id number]. ECOG PERFORMANCE STATUS: 1. TREATMENT SUMMARY: Ms. Johnson is a very pleasant 65-year-old white female with the diagnosis what appears to be a stage III C, T1c [id number], poorly differentiated invasive ductal carcinoma of the left breast who presented to us for consideration of definitive external beam radiation therapy with IMRT/IGRT. We treated the patient to the left chest wall and left lymph node drainage sites for a dose of 5400 cGy delivered in 28 fractions of 180 cGy each over 30 elapsed days from 10/07/2016 through 11/14/2016. The patient's site was treated on a linear accelerator utilizing a 6 MV photon beam via IMRT/IGRT. We subsequently coned down to the scar to deliver a boost of an additional 900 cGy delivered in 5 fractions of 180 cGy each from 11/17/2016 through 11/21/2016. The primary site boost was treated on a linear accelerator utilizing a 6 MEV electron beam prescribed to the 90% isodose line via non phos technique. This brought the scar to a total dose of 5940 cGy delivered in 33 fractions over 45 elapsed days from 10/07/2016 through 11/21/2016. Ms. Johnsno tolerated her treatments quite well, although she did have discomfort and lymphedema in the contralateral arm and axillary region. The treated side had no difficulties no skin problems or other issues. The patient was able to complete therapy as prescribed. I have scheduled the patient to see me again in 1 month for further followup. She will also continue to be followed by her other physicians as well. Thank you for allowing us to participate in the care of this very pleasant woman. If I could be of any further assistance or provide you with any information, please feel free to contact me anytime. As always warm regards. cc: Marilia Anderson MD, FACP MD Efra Moreira PA MTDD
== END 2016-11-29 ==
LOC: M ONCR 13:29
PROVIDERS: ATTEND Radiology Radiation Oncology
DX: C50.812 Malignant neoplasm of overlapping sites of left female breast (principal)

== ENCOUNTER → 2016-11-06 | Outpatient (REF) | payer MEDICARE | LOC: M LAB REF 10:36 | PROVIDERS: ATTEND Physician Assistant Medical | DX: I10 Essential (primary) hypertension (principal); E78.2 Mixed hyperlipidemia; R53.83 Other fatigue ==

== ENCOUNTER 2016-11-13 08:26 | Outpatient (RCR) | payer MEDICARE | END 2016-11-29 | disposition home or self-care (01) | LOC: M PT 08:26 | PROVIDERS: ATTEND Radiology Radiation Oncology | DX: Z51.89 Encounter for other specified aftercare (principal); R59.0 Localized enlarged lymph nodes | CPT/HCPCS: 97140; G8984; G8985; G8986 ==

== ENCOUNTER → 2016-11-21 | Outpatient (CLI) | payer MEDICARE ==
--- NOTE | 2016-12-03 01:29 | ECWPNPC ---
PATIENT NAME: SETH OVIEDO : 1950 GENDER: FEMALE VISIT DATE: 11/21/2016 DISCHARGE DATE: 11/21/16 1251 VISIT LOCKED DATE TIME: PHYSICIAN: TAMEKA SAMANIEGO RESOURCE: TAMEKA SAMANIEGO REASON FOR APPOINTMENT 1. NECK AND SHOULDER PAIN HISTORY OF PRESENT ILLNESS FALL RISK SCREENING: SCREENING :NO FALLS IN THE PAST YEAR 65 YEAR OLD FEMALE PATIENT WITH HISTORY OF CHRONIC NECK AND RIGHT SHOULDER PAIN. PATIENT DESCRIBES THE PAIN ACHING AND SHARP WITH THE PAIN COMING AND GOING AND A PAIN SCORE OF 6/10. PATIENT REPORTS HAVING THE CHRONIC ARM AND NECK PAIN START AFTER HAVING TO HAVE HER ARM RAISED FOR CHEMOTHERAPY. PATIENT RECEIVED A RIGHT BREAST MASTECTOMY ALONG WITH REMOVAL OF THE RIGHT LYMPH NODES OVER 15 YEARS AGO AND HAVE THE LEFT BREAST AND LYMPH NODES REMOVED LAST APRIL. AT THIS TIME THE PATIENT HAS RECEIVED PERCOCET TO AID IN PAIN RELIEF BUT REPORTS SHE DOESN'T LIKE TO USE THEM THEY MAKE HER FEEL FUNNY. PATIENT DENIES UNEXPLAINABLE WEIGHT LOSS, FEVER, CHILLS, NEW CHANGES ON HER URINARY OR BOWEL CONTROL. PAIN SCREENING: PATIENT HAS A COMPLAINT OF ACUTE OR CHRONIC PAIN :YES CURRENT MEDICATIONS TAKING ALLOPURINOL 100 MG TABLET 1 TABLET ORALLY BID TAKING PRAVASTATIN SODIUM 40 MG TABLET 1 TABLET ORALLY ONCE A DAY TAKING AMITRIPTYLINE HCL 50 MG TABLET 1 TABLET ORALLY ONCE A DAY TAKING ATENOLOL 50 MG TABLET 1 TABLET ORALLY ONCE A DAY TAKING ASPIR-81 81 MG TABLET DELAYED RELEASE 1 TABLET ORALLY ONCE A DAY TAKING SYMBICORT 160-4.5 MCG/ACT AEROSOL 2 PUFFS INHALATION TWICE A DAY TAKING VENTOLIN HFA 108 (90 BASE) MCG/ACT AEROSOL SOLUTION 2 PUFFS NEEDED INHALATION EVERY 4 HRS TAKING CALCIUM + D 500-1000-40 MG-UNT-MCG TABLET CHEWABLE ORALLY TAKING VITAMIN E 1000 UNIT CAPSULE 1 CAPSULE ORALLY ONCE A DAY TAKING NEXIUM 20 MG CAPSULE DELAYED RELEASE 1 CAPSULE ORALLY ONCE A DAY MEDICATION LIST REVIEWED AND RECONCILED WITH THE PATIENT PAST MEDICAL HISTORY ANGINA HYPERTENSION HIGH CHOLESTEROL MUSCLE WEAKNESS SECONDARY TO CHEMOTHERAPY SLEEP APNEA, USES CPAP ASTHMA GERD HIATAL HERNIA CHINO'S ESOPHAGUS BACK PAIN NECK PAIN BREAST CANCER LYMPH NODES REMOVED ALLERGIES MORPHINE SULFATE: MIGRAINES, VOMITING: ALLERGY DEMEROL: MIGRAINES, VOMITING: ALLERGY SURGICAL HISTORY HYSTERECTOMY 1979 RIGHT MASTECTOMY 2002 ANKLE SURGERY 2016 LEFT MASTECTOMY 2017 FAMILY HISTORY FATHER: , DIAGNOSED WITH OTHER MOTHER: , DIAGNOSED WITH HEART DISEASE SIBLINGS: , DIAGNOSED WITH CANCER 5 BROTHER(S) , 2 SISTER(S) . 2 SON(S) . FATHER HAD ALZHEIMER'S DEMENTIA. SOCIAL HISTORY GENERAL: TOBACCO USE ARE YOU A:NONSMOKER LUNG CANCER SCREENING SMOKING STATUS:NON SMOKER ALCOHOL SCREENING POINTS0 INTERPRETATIONNEGATIVE RECREATIONAL DRUG USE DRUG USE?NO CAFFEINE CAFFEINE USE?YES HOW OFTEN AND HOW MUCH? ONE DRINK OF COFFEE IN AM OCCUPATION: RETIRED. DIET: REGULAR. MARITAL STATUS: . OTHERS AT HOME: SPOUSE. PETS: NONE. RASTAFARIAN [id number] NONE LANGUAGE LANGUAGES SPOKEN:SPANISH LEARNING BARRIERS / SPECIAL NEEDS HEARING IMPAIRED?YES DEAF IN LEFT EAR, NO HEARING AIDS LEARNING PREFERENCES?NO PAIN CLINIC PFS, CLERGY, PUBLIC HEALTH REFERRALS HAS THE PATIENT BEEN EDUCATED REGARDING HIS/HER PLAN OF CARE?YES PLEASE DOCUMENT ANY ADDTIONAL DETAILS. ORIENTED TO UNIT AND POLAN OF CARE HAS THE PATIENT BEEN EDUCATED REGARDING PAIN, THE RISK FOR PAIN, THE IMPORTANCE OF EFFECTIVE PAIN MANAGEMENT, AND THE PAIN ASSESSMENT PROCESS?YES ADVANCE DIRECTIVES HEALTH CARE PROXY?YES NAME OF HCP SH[facility]AG[facility] CONTACT # FOR HCP [phone] DO YOU HAVE A COPY WITH YOU? IN HOSPITAL RECORDS DO YOU HAVE A DNR?NO LIVING WILL?NO WOULD YOU LIKE MORE INFORMATION?NO POWER OF BLISTER RUST ERADICATOR?NO WOULD YOU LIKE MORE INFORMATION?NO HOSPITALIZATION/MAJOR DIAGNOSTIC PROCEDURE NO HOSPITALIZATION HISTORY. REVIEW OF SYSTEMS REVIEWED BY: PROVIDER: TAMEKA SAMANIEGO MD . CONSTITUTIONAL: ANY CHANGE IN YOUR MEDICAL CONDITION? YES PT HAD NEW PORT PUT IN TODAY . CHILLS NO . FEVER NO . INFECTION: DO YOU HAVE NEW INFECTIONS? NO . DO YOU HAVE HISTORY OF MRSA? NO . MUSCULOSKELETAL: ANY NEW PATTERNS OF PAIN OR NUMBNESS? YES PT REPORTS PAIN STARTED DURING RADIATION THERAPY WHEN SHE HAD TO HOLD HER ARMS OVER HER HEAD FOR PROLONGED PERIODS OF TIME. DR. 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 . SYTEMIC LUPUS NO . GASTROENTEROLOGY: ANY NEW CHANGE IN BOWEL CONTROL? NO . BARRETTS ESOPHAGUS YES . CIRRHOSIS NO . HEPATITIS NO . LIVER FAILURE NO . ACID REFLUX YES . UNEXPLAINED WEIGHT LOSS NO . GENITOURINARY: ANY NEW CHANGE IN BLADDER CONTROL? NO . IS THERE A CHANCE YOU COULD BE ? NO . HEMATOLOGY/LYMPH: DO YOU TAKE ANY BLOOD THINNERS? (FOR EXAMPLE- COUMADIN, PLAVIX, AGGRENOX, PLATEL, PRADAXA, OR XARELTO) NO . WHEN WAS YOUR LAST DOSE? DATE: TIME: . LOW PLATELET COUNT NO . SICKLE CELL DISEASE NO . VON WILLIEBRANDS NO . FACTOR V LEIDEN NO . THALLASEMIA NO . ANEMIA NO . EASY BRUISING NO . NEUROLOGY: HAVE YOU FALLEN IN THE PAST 6 MONTHS? NO . ANY NEW EXTREMITY NUMBNESS OR WEAKNESS? NO . HEAD INJURY NO . DEMENTIA NO . CEREBRAL PALSY NO . MULTIPLE SCLEROSIS NO . DIZZINESS NO . HEADACHE NO . STROKES NO . VERTIGO NO . CARDIOLOGY: DO YOU HAVE A PACEMAKER OR DEFIBRILLATOR? NO . ANGINA YES . HEART ATTACK NO . HEART SURGERY NO . CONGESTIVE HEART FAILURE/FLUID OVERLOAD NO . CHEST PAIN NO . HIGH BLOOD PRESSURE NO . IRREGULAR HEART BEAT NO . RESPIRATORY: HAVE YOU BEEN SICK IN THE PAST WEEK? NO . FEVER NO . FLU LIKE SYMPTOMS? NO . CPAP NO . BYPAP NO . ASTHMA NO . EMPHYSEMA NO . CHRONIC LUNG DISEASES NO . SHORTNESS OF BREATH ON EXERTION NO . COUGH NO . SNORING NO . INTEGUMENTARY: DO YOU HAVE ANY RASHES OR OPEN SORES? NO . ALLERGIC/IMMUNO: ARE YOU ALLERGIC TO SHELLFISH OR IV DYE? NO . ANY NEW ALLERGIES? NO . PSYCHIATRIC: DO YOU HAVE THOUGHTS OF HURTING YOURSELF OR SOMEONE ELSE? NO . ARE YOU ABUSED, NEGLECTED, OR IN AN UNSAFE ENVIRONMENT? NO . ENDOCRINOLOGY: ARE YOU DIABETIC? NO . THYROID DISORDER NO . OTHER: DO YOU NEED ANY PRESCRIPTIONS? NO . IF YES, PLEASE LIST: ____ . ANY NEW PROBLEMS WITH YOUR MEDICATIONS? NO . WHEN DID YOU LAST EAT? ____ . WHEN DID YOU LAST DRINK? ____ . WHAT DID YOU LAST DRINK? ____ . NAME OF PERSON DRIVING YOU HOME? ____ . DO YOU HAVE ANY OTHER QUESTIONS OR CONCERNS NO . VITAL SIGNS WT 166 LBS, HT 59 IN, BMI 33.52 INDEX, BP 156/86 MM HG, HR 68 /MIN, RR 18 /MIN, TEMP 97.6 F, OXYGEN SAT % 99%, SAFE IN ENV? (Y/N) YES, REVIEWED BY: HARVEY. EXAMINATION : PATIENT IS ALERT O X 3 AND COOPERATIVE. TENDERNESS IN THE CERVICAL AREA AND PARASPINAL MUSCLE GROUP. BANDS OF TISSUE, RESTRICTION OF MOVEMENT, AND PRESENCES OF TRIGGER POINTS IN THE CERVICAL AND SHOULDER AREA. SWELLING OVER THE RIGHT ARM. PATIENT REPORTS NUMBNESS IN THE RIGHT ARM BUT PAIN DEEP WITHIN THE ARM. ASSESSMENTS MYALGIA - M79.1 (PRIMARY) TREATMENT MYALGIA NOTES: WE DISCUSSED SEVERAL ISSUES WITH MRS. OVIEDO'S PAIN MANAGEMENT CASE. AT THIS TIME THE PATIENT WILL START GABAPENTIN FOR THE NEUROPATHIC PAIN. PATIENT WAS ADVISED TO START THE MEDICATION SLOWLY AND TO DECREASE IT IF SHE HAS ANY ADVERSE SIDE EFFECTS. PATIENT WILL ALSO RECEIVE TRAMADOL FOR THE SOMATIC PAIN. PATIENT IS A CANDIDATE FOR MUSCLE RELAXERS BUT AT THIS TIME THE PATIENT DOES NOT WANT TO TRY THEM. PATIENT DENIES ABUSE OF ANY MEDICATION, DENIES USE OF ILLEGAL SUBSTANCES, AND STATES SHE WILL ONLY USE THE MEDICATION FOR PAIN MANAGEMENT. PATIENT WILL SIGN A NARCOTIC AGREEMENT TODAY. ISTOP WAS REVIEWED [phone]. I WOULD LIKE TO SPEAK WITH THE PATIENT'S PRIMARY CARE DOCTOR TO DISCUSS OTHER MEDICATIONS THAT MAY AID THE PATIENT IN PAIN RELIEF. MRS. OVIEDO IS ALSO A GOOD CANDIDATE FOR THE TRIGGER POINT INJECTIONS DUE TO THE BANDS OF TISSUE. PATIENT DOES NOT WANT TO MOVE FORWARD WITH INTERVENTIONS AT THIS TIME AND WOULD LIKE TO FURTHER DISCUSS THE INJECTION AT HER NEXT VISIT. PATIENT WILL RETURN TO THE CLINIC IN 1 MONTH. INSTRUCTIONS WERE GIVEN, QUESTIONS WERE ANSWERED, PATIENT REPORTS UNDERSTANDING AND AGREES WITH THE PLAN. I, ANA ROJO, DOCUMENTED THE ABOVE INFORMATION ACTING A SCRIBE FOR DR. SAMANIEGO. I HAVE REVIEWED THE ABOVE DOCUMENT, WRITTEN BY ANA KHAN AND I VERIFY THAT IT IS ACCURATE. DEAR DR. LECHUGA:THANK YOU FOR YOUR KIND REFERRAL OF MRS. OVIEDO. IF YOU WANT TO DISCUSS HER CASE WITH ME PLEASE CALL ME AT THE PAIN CENTER AT [phone]. SINCERELY,TAMEKA SAMANIEGO, [facility]. OTHERS START GABAPENTIN CAPSULE, 100 MG, DIRECTED, ORALLY FOR PAIN, THREE TIMES DAILY, 30 DAYS, 90, REFILLS 1 START TRAMADOL HCL TABLET, 50 MG, 1 TABLET NEEDED, ORALLY FOR PAIN, EVERY 8 HRS MDD3, 30 DAYS, 45, REFILLS 0 PROCEDURE CODES FA211 ESTABILISHED PATIENT [facility] FAC[facility] CHARGE G0258 DOC MEDS VERIFIED W/PT OR RE N0842 PAIN ASSESS POS TOOL F/U PLAN DOC DISPOSITION & COMMUNICATION FOLLOW UP 3 WEEKS ELECTRONICALLY SIGNED BY TAMEKA SAMANIEGO MD ON 12/01/2016 AT 01:32 PM EDT DISCLAIMER : THIS IS A VISIT SUMMARY EXTRACTED FROM THE [facility] CHART. IT IS NOT A COPY OF THE [facility] PROGRESS NOTE. MTDD
== END ==
LOC: M PAIN 11:30
PROVIDERS: ATTEND Anesthesiology
DX: G89.29 Other chronic pain (principal); M54.2 Cervicalgia; M25.511 Pain in right shoulder; M79.1 Myalgia; I10 Essential (primary) hypertension; E78.00 Pure hypercholesterolemia, unspecified; J45.909 Unspecified asthma, uncomplicated; K22.70 Barrett's esophagus without dysplasia; G47.30 Sleep apnea, unspecified; I20.9 Angina pectoris, unspecified; Z88.5 Allergy status to narcotic agent; Z79.82 Long term (current) use of aspirin; Z79.899 Other long term (current) drug therapy; Z95.828 Presence of other vascular implants and grafts; Z85.3 Personal history of malignant neoplasm of breast; Z92.21 Personal history of antineoplastic chemotherapy

== ENCOUNTER → 2016-11-21 | Outpatient (CLI) | payer MEDICARE ==
[~2016-11-21] MED LIST changes: +ISOVUE-300 61% 50ML VIAL (Q9967) As Ordered ONE; +LIDOCAINE 2% MDV 20 ML VIAL As Ordered ONE; +MIDAZOLAM INJ 2 MG/2 ML VIAL (J2250) As Ordered ONE; +ceFAZolin 1GM INJ (J0690) As Ordered ONE; +fentaNYL 100 MCG/2 ML INJECTION (J3010) As Ordered ONE
--- NOTE | 2016-12-10 13:16 | REPKIM ---
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 Bilateral upper extremity lymph edema. 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 Bilateral upper extremity lymph edema. PROCEDURE: Ultrasound right internal jugular vein Port-a-cath insertion after removal of the pre-existing right internal jugular vein Port-a-cath. Right internal jugular vein thrombosis. SURGEON: Dr. Steven Gomez. AIR CONDITIONING EQUIPMENT MECHANIC: Katty Oleayr. ANESTHESIA: Local with sedation with 1 mg of Versed, 50 mcg of Fentanyl and 15 mL of lidocaine. ESTIMATED BLOOD LOSS: PREOPERATIVE ANTIBIOTICS: 1 gram of Ancef. SEDATION TIME: 9:30 a.m. to 10:10 a.m. with the sedation administered by myself, the cardiopulmonary monitoring performed by the nurse in the room. I was present for and directed the entire case. COMPLICATIONS: None. DRAINS: None. SPECIMENS: None. IMPLANTS: Right internal jugular vein Port-a-cath. INDICATION: The patient is a 65-year-old female with infiltrating ductal carcinoma who underwent placement of a right internal jugular vein Port-a-cath which is nonfunctioning and requires evaluation with possible replacement. Risks, benefits and alternative treatment options were discussed with the patient. PROCEDURE: The patient was taken to the angiography suite and placed supine on the angiography room table and then prepped and draped in a standard surgical fashion. The initial fluoroscopic evaluation showed the tip of the catheter to be in the innominate vein. The area overlying the catheter and port were then anesthetized and the port was going to be exchanged but due to the short length in the vein, the port was pulled back and the catheter access lost, after which ultrasound was used to evaluate the right internal jugular vein which was noted to be thrombosed. The right internal jugular vein was then recanalized after being ultrasound guided cannulated and a new port was placed with the catheter and the tip in the superior vena cava/right atrial junction. The port was placed in the old pocket which was then closed using #2-0 Vicryl to approximate the deeper layers and #3-0 Monocryl to approximate the skin. Steri-Strips and dressings were applied. Patient tolerated the procedure well. All instrument, sponge and needle counts were correct at the end of the case. There were no complications. Dr. Gomez was present for and directed the entire case. Patient was transferred to the holding area and subsequently discharged. The port is stable for use for access. RADIOLOGICAL SUPERVISION INTERPRETATION: The initial ultrasound performed after removal of the port showed thrombosis of the right internal jugular vein. Ultrasound was used to guide cannulation of the thrombosed right internal jugular vein recanalized. Real-time concurrent visualization of the entry of the needle into the thrombosed right internal jugular vein was performed with a hard copy image preserved. Final fluoroscopic image showed the port to be in good position with the tip of the catheter in the superior vena cava/right atrial junction with no pneumo- or hemothorax noted.
== END | disposition home or self-care (01) ==
LOC: M IRPRO 08:30
PROVIDERS: ATTEND Internal Medicine Medical Oncology
DX: T82.9XXA Unspecified complication of cardiac and vascular prosthetic device, implant and graft, initial encounter (principal); I82.C11 Acute embolism and thrombosis of right internal jugular vein; C77.9 Secondary and unspecified malignant neoplasm of lymph node, unspecified; G89.29 Other chronic pain; M54.2 Cervicalgia; M25.511 Pain in right shoulder; M79.1 Myalgia; I10 Essential (primary) hypertension; E78.00 Pure hypercholesterolemia, unspecified; J45.909 Unspecified asthma, uncomplicated; K22.70 Barrett's esophagus without dysplasia; G47.30 Sleep apnea, unspecified; I20.9 Angina pectoris, unspecified; Z88.5 Allergy status to narcotic agent; Z79.82 Long term (current) use of aspirin; Z79.899 Other long term (current) drug therapy; Z95.828 Presence of other vascular implants and grafts; Z85.3 Personal history of malignant neoplasm of breast; Z92.21 Personal history of antineoplastic chemotherapy
CPT/HCPCS: 36582; 76937; 77001; 99152; 99153; C1788; C1894; G0463; J0690; J2250; J3010; Q9967

== ENCOUNTER → 2016-12-19 | Outpatient (CLI) | payer MEDICARE ==
[~2016-12-19] MED LIST changes: -ISOVUE-300 61% 50ML VIAL (Q9967) As Ordered ONE; -LIDOCAINE 2% MDV 20 ML VIAL As Ordered ONE; -MIDAZOLAM INJ 2 MG/2 ML VIAL (J2250) As Ordered ONE; -ceFAZolin 1GM INJ (J0690) As Ordered ONE; -fentaNYL 100 MCG/2 ML INJECTION (J3010) As Ordered ONE
== END ==
LOC: M PAIN 11:00
PROVIDERS: ATTEND Anesthesiology
DX: Z53.29 Procedure and treatment not carried out because of patient's decision for other reasons (principal)

== ENCOUNTER 2017-02-10 08:37 | Outpatient (RCR) | payer MEDICARE | END 2017-03-01 | LOC: M PT 08:37 | DX: Z51.89 Encounter for other specified aftercare (principal); I89.0 Lymphedema, not elsewhere classified | CPT/HCPCS: 97162 ==

== ENCOUNTER → 2017-04-03 | Outpatient (REF) | payer MEDICARE ==
[2017-04-03 13:18] LABS: FERRITIN 11 NG/ML (8-252); IRON (FE) 56 UG/DL (50-170); PERCENT SATURATION 13.8 % (13.2-45.0); TOTAL IRON BINDING CAPACITY 407 UG/DL (250-450)
[2017-04-03 15:21] LABS: CA15-3 ANTIGEN 9.3 U/ML (<32.4)
== END ==
LOC: M LAB REF 12:08
DX: C50.919 Malignant neoplasm of unspecified site of unspecified female breast (principal); E78.2 Mixed hyperlipidemia; R53.83 Other fatigue
CPT/HCPCS: 83550

== ENCOUNTER → 2017-04-03 | Outpatient (REF) | payer MEDICARE ==
[2017-04-03 13:24] LABS: CHOLESTEROL LEVEL 178 MG/DL (<200); CHOLESTEROL RISK RATIO 4.045 (<5); HDL CHOLESTEROL 44 MG/DL (>40); LDL CHOLESTEROL 73.4 MG/DL (<100); NON-HDL-C 134 MG/DL; TRIGLYCERIDES LEVEL 303 MG/DL (<150)
== END ==
LOC: M LAB REF 12:10
DX: E78.2 Mixed hyperlipidemia (principal); R53.83 Other fatigue
CPT/HCPCS: 80061

== ENCOUNTER → 2017-06-26 | Outpatient (REF) | payer MEDICARE ==
[2017-06-26 14:01] LABS: CA15-3 ANTIGEN 9.4 U/ML (<32.4)
== END ==
LOC: M ONCM 08:00
DX: C50.919 Malignant neoplasm of unspecified site of unspecified female breast (principal)
CPT/HCPCS: 86300

== ENCOUNTER → 2017-06-26 | Outpatient (CLI) | payer MEDICARE | LOC: M RAD 09:17 | DX: R06.02 Shortness of breath (principal); C50.919 Malignant neoplasm of unspecified site of unspecified female breast | CPT/HCPCS: 71046 ==

== ENCOUNTER → 2017-07-15 | Outpatient (CLI) | payer MEDICARE | LOC: M ONCR 08:07 | DX: C50.812 Malignant neoplasm of overlapping sites of left female breast (principal) | CPT/HCPCS: G0463 ==

== ENCOUNTER → 2017-09-23 | Outpatient (REF) | payer MEDICARE ==
[2017-09-23 13:41] LABS: FERRITIN 35 NG/ML (8-252); IRON (FE) 94 UG/DL (50-170); PERCENT SATURATION 28.3 % (13.2-45.0); TOTAL IRON BINDING CAPACITY 332 UG/DL (250-450)
== END ==
LOC: M LAB REF 13:02
DX: C77.3 Secondary and unspecified malignant neoplasm of axilla and upper limb lymph nodes (principal); C50.312 Malignant neoplasm of lower-inner quadrant of left female breast
CPT/HCPCS: 83550

== ENCOUNTER → 2017-09-25 | Outpatient (CLI) | payer MEDICARE | LOC: M RAD 08:33 | DX: C50.312 Malignant neoplasm of lower-inner quadrant of left female breast (principal); M54.5 Low back pain; M54.6 Pain in thoracic spine; R07.81 Pleurodynia | CPT/HCPCS: 78306 ==

== ENCOUNTER → 2019-05-09 | Outpatient (CLI) | payer MEDICARE ==
[~2019-05-09] MED LIST changes: -ASPI1TAB PO; +ASPI81TA26 PO; -ZOFR8TAB; +ZOFR8TAB24
== END ==
LOC: M PLARAD 12:01
PROVIDERS: ATTEND Internal Medicine Hematology & Oncology
DX: C50.311 Malignant neoplasm of lower-inner quadrant of right female breast (principal)
CPT/HCPCS: 78815; A9552